=== PATIENT | male | born 1985 | race Hispanic/Latino ===

== ENCOUNTER 2023-01-13 14:49 | Emergency (ER) | payer SELFPAY ==
[2023-01-13] MEDS ORDERED: CEFAZOLIN SODIUM 1 GM/VIAL ONE (15:17)
[2023-01-13] MEDS ORDERED: LIDOCAINE 1% 20 ML MDV ONE (15:17)
[2023-01-13] MEDS ORDERED: NA CHLORIDE 0.9% 100 ML ONE (15:18)
[2023-01-13] MEDS ORDERED: TETANUS & DIPHTHERIA TOX,ADULT 0.5 ML VIAL ONE (15:18)
--- NOTE | 2023-01-13 15:37 | RAD REPORT ---
EXAM DESCRIPTION: RAD - Hand Left 3 View - 01/13/2023 3:28 pm CLINICAL HISTORY: distal thumb amputation COMPARISON: No comparisons FINDINGS/IMPRESSION: The thumb phalangeal tuft has been amputated. No radiopaque foreign body. Soft tissue defect also present.
--- NOTE | 2023-01-13 15:47 | EDPHYS ---
Physician Documentation [facility] Name: Ron Tony Age: 37 yrs Sex: Male : 1985 Arrival Date: 01/13/2023 Time: 14:49 Bed 8 Private MD: ED Physician Ralph Jacobson HPI: 01/13 15:06 This 37 yrs old Male presents to ER via EMS with complaints of distal thumb snw amputation. 15:06 The patient or guardian reports a laceration, distal amputation of left thumb. Context: snw cutting meat with a slicer at home. Associated signs and symptoms: The patient has no apparent associated signs or symptoms. Severity of symptoms: At their worst the symptoms were moderate. The patient has not experienced similar symptoms in the past. The patient has not recently seen a physician. hx of diabetes. Historical: - Allergies: 15:01 No Known Allergies; bp - Home Meds: 15:01 Metformin Oral [Active]; bp - PMHx: 15:01 Diabetes mellitus; bp - Immunization history:: Adult Immunizations up to date, Last tetanus immunization: unknown. - Social history:: Smoking status: Patient denies any tobacco usage or history of. ROS: 15:05 Constitutional: Negative for fever, chills, and weight loss, Eyes: Negative for injury, snw pain, redness, and discharge, ENT: Negative for injury, pain, and discharge, Neck: Negative for injury, pain, and swelling, Cardiovascular: Negative for chest pain, palpitations, and edema, Respiratory: Negative for shortness of breath, cough, wheezing, and pleuritic chest pain, Abdomen/GI: Negative for abdominal pain, nausea, vomiting, diarrhea, and constipation, Back: Negative for injury and pain, : Negative for injury, bleeding, discharge, and swelling, Skin: Negative for injury, rash, and discoloration, Neuro: Negative for headache, weakness, numbness, tingling, and seizure. 15:05 MS/extremity: Positive for left distal thumb amputation. Exam: 15:03 Constitutional: This is a well developed, well nourished patient who is awake, alert, snw and in no acute distress. Head/Face: Normocephalic, atraumatic. Eyes: Pupils equal round and reactive to light, extra-ocular motions intact. Lids and lashes normal. Conjunctiva and sclera are non-icteric and not injected. Cornea within normal limits. Periorbital areas with no swelling, redness, or edema. ENT: Nares patent. No nasal discharge, no septal abnormalities noted. Tympanic membranes are normal and external auditory canals are clear. Oropharynx with no redness, swelling, or masses, exudates, or evidence of obstruction, uvula midline. Mucous membranes moist. Neck: Trachea midline, no thyromegaly or masses palpated, and no cervical lymphadenopathy. Supple, full range of motion without nuchal rigidity, or vertebral point tenderness. No Meningismus. Chest/axilla: Normal chest wall appearance and motion. Nontender with no deformity. No lesions are appreciated. Cardiovascular: Regular rate and rhythm with a normal S1 and S2. No gallops, murmurs, or rubs. Normal PMI, no JVD. No pulse deficits. Respiratory: Lungs have equal breath sounds bilaterally, clear to auscultation and percussion. No rales, rhonchi or wheezes noted. No increased work of breathing, no retractions or nasal flaring. Abdomen/GI: Soft, non-tender, with normal bowel sounds. No distension or tympany. No guarding or rebound. No evidence of tenderness throughout. Back: No spinal tenderness. No costovertebral tenderness. Full range of motion. MS/ Extremity: Pulses equal, no cyanosis. Neurovascular intact. Full, normal range of motion. Neuro: Awake and alert, GCS 15, oriented to person, place, time, and situation. Cranial nerves II-XII grossly intact. Motor strength 5/5 in all extremities. Sensory grossly intact. Cerebellar exam normal. Normal gait. Psych: Awake, alert, with orientation to person, place and time. Behavior, mood, and affect are within normal limits. 15:03 Skin: Appearance: normal except for affected area, injury, laceration(s), the wound is approximately 3 cm(s), of the amputation of distal thumb proximal to nailbed and distal to dip joint. Vital Signs: 14:59 BP 96 / 60; Pulse 100; Resp 16; Temp 98; Pulse Ox 97% on R/A; bp 16:34 BP 118 / 78; Pulse 89; Resp 16; Pulse Ox 98% ; bp Procedures: 15:11 Nerve block: (dental) of dorsal aspect of distal phalanx of left thumb and left snw thumbnail Medication: Lidocaine 1% without epinephrine Marcaine 0.5%, Amount: 3 mls were injected, Effect: the patient's symptoms are improved, markedly, Performed by Cassie PATEL Patient tolerated well. MDM: 14:53 Patient medically screened. marky 15:47 Differential diagnosis: open fracture, closed fracture, avulsion, amputation. Data snw reviewed: vital signs, nurses notes, EMS record, radiologic studies, plain films. Management of patient was discussed with the following: Dr. Sandoval (Hand) at [facility] kindly accept pt for ED eval at [facility]. Management of patient was discussed with the following:. Historians other than the Patient: EMS: [place]. Care significantly affected by the following chronic conditions: Diabetes. Counseling: I had a detailed discussion with the patient and/or guardian regarding: radiology results, the need to transfer to another facility, [facility] does not immediately have the required specialist. Response to treatment: the patient's symptoms have mildly improved after treatment. 01/13 14:58 Order name: Hand Left 3 View XRAY; Complete Time: 15:39 snw 01/13 14:58 Order name: IV; Complete Time: 16:02 snw 01/13 15:49 Order name: Misc. Order: wound dressing - xeroform and loose bulky dressing; Complete snw Time: 16:34 Administered Medications: 15:15 Drug: ceFAZolin IVPB 1 grams Route: IVPB; Site: right forearm; bp 17:06 Follow up: IV Status: Completed infusion; IV Intake: 100ml bp 15:24 Drug: Boostrix Tdap IM 0.5 ml Route: IM; Site: right deltoid; bp 17:06 Follow up: Response: No adverse reaction bp 15:24 Drug: Bupivacaine Infiltration (0.25 %) 1 vials Route: Infiltration; bp 15:24 Drug: Lidocaine Infiltration (1 %) 1 vials Volume: 20 ml; Route: Infiltration; bp Disposition Summary: 01/13/23 15:47 Transfer Ordered Transfer Location: [facility] snw Reason: Specialty snw Condition: Stable snw Problem: new snw Symptoms: are unchanged snw Accepting Physician: Dr. Sandoval for ED eval(01/13/23 17:06) bp Diagnosis - Unspecified open wound of left thumb with damage to nail, initial encounter - snw distal amputation Forms: - Medication Reconciliation Form snw - SBAR form snw Signatures: Dispatcher [employer] EDRalph Orellana MD MD cha Waters, Shelly, [employer] SPECIAL AGENT-C FBI SPECIAL AGENT-John Das, RN RN bp Corrections: (The following items were deleted from the chart) 17:06 15:47 Dr. Sandoval for ED eval snw bp
--- NOTE | 2023-01-13 15:47 | ER ---
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 bp Coronavirus screen: At this time, the client does not indicate any symptoms associated with coronavirus-19. Ebola Screen: No symptoms or risks identified at this time. Initial Sepsis Screen: Does the patient meet any 2 criteria? HR > 90 bpm. No. Patient's initial sepsis screen is negative. Does the patient have a suspected source of infection? No. Patient's initial sepsis screen is negative. Risk Assessment: Do you want to hurt yourself or someone else? Patient reports no desire to harm self or others. Onset of symptoms was January 13, 2023 at 14:30. 14:59 Method Of Arrival: EMS: [facility] bp 14:59 Acuity: DIANN 2 bp Triage Assessment: 15:01 General: Appears distressed, uncomfortable, Behavior is cooperative, appropriate for bp age, agitated, anxious. Pain: Complains of pain in left hand. EENT: No deficits noted. Neuro: No deficits noted. Cardiovascular: No deficits noted. Respiratory: No deficits noted. GI: No signs and/or symptoms were reported involving the gastrointestinal system. : No signs and/or symptoms were reported regarding the genitourinary system. Derm: No deficits noted. Musculoskeletal: Amputation of left thumb. Injury Description: Amputation sustained to left thumb. Historical: - Allergies: 15:01 No Known Allergies; bp - Home Meds: 15:01 Metformin Oral [Active]; bp - PMHx: 15:01 Diabetes mellitus; bp - Immunization history:: Adult Immunizations up to date, Last tetanus immunization: unknown. - Social history:: Smoking status: Patient denies any tobacco usage or history of. Screenin:00 [facility] ED Fall Risk Assessment (Adult) History of falling in the last 3 months, bp including since admission No falls in past 3 months (0 pts). Abuse screen: Denies threats or abuse. Denies injuries from another. Nutritional screening: No deficits noted. Tuberculosis screening: No symptoms or risk factors identified. Assessment: 15:00 General: SEE TRIAGE NOTE. bp 16:34 Reassessment: REPORT TO YO VERA FOR [facility] ER. TRANSPORT PENDING. bp 17:05 Reassessment: PT KVNG WITH EMS. bp Vital Signs: 14:59 BP 96 / 60; Pulse 100; Resp 16; Temp 98; Pulse Ox 97% on R/A; bp 16:34 BP 118 / 78; Pulse 89; Resp 16; Pulse Ox 98% ; bp ED Course: 14:51 Patient arrived in ED. iw 14:53 Ralph Jacobson MD is Attending Physician. marky 14:55 Cassie Kramer FNP-C is PHCP. snw 14:59 John Nugent, JODY is Primary Nurse. bp 15:00 Patient has correct armband on for positive identification. Bed in low position. Call bp light in reach. Side rails up X2. 15:01 Triage completed. bp 15:04 Arm band placed on. bp 15:15 Inserted saline lock: 22 gauge in right forearm, using aseptic technique. Blood bp collected. 15:30 Hand Left 3 View XRAY In Process Unspecified. EDMS 15:37 initiated a transfer with Rivka Cabrera Rn from the [facility]. eb 15:44 connected the hand surgeon radiation oncology manager for [facility] ER with Cassie Griffiths for patient transfer consultation. 15:45 administrative approval given by Rivka Cabrera Rn/ patient has been accepted to [facility] ER/ Dr. Eleazar Sandoval has accepted the patient in transfer/ report to be called to [phone]. 17:05 No provider procedures requiring assistance completed. Patient transferred, IV remains bp in place. Administered Medications: 15:15 Drug: ceFAZolin IVPB 1 grams Route: IVPB; Site: right forearm; bp 17:06 Follow up: IV Status: Completed infusion; IV Intake: 100ml bp 15:24 Drug: Boostrix Tdap IM 0.5 ml Route: IM; Site: right deltoid; bp 17:06 Follow up: Response: No adverse reaction bp 15:24 Drug: Bupivacaine Infiltration (0.25 %) 1 vials Route: Infiltration; bp 15:24 Drug: Lidocaine Infiltration (1 %) 1 vials Volume: 20 ml; Route: Infiltration; bp Medication: 15:00 VIS not applicable for this client. bp Intake: 17:06 IV: 100ml; Total: 100ml. bp Outcome: 15:47 ER care complete, transfer ordered by . w 17:05 Transferred by ground EMS to [facility], Transfer form completed. bp 17:05 Condition: stable 17:05 Instructed on the need for transfer. 17:06 Patient left the ED. bp Signatures: Dispatcher [employer] EDMS Ralph Jacobson MD MD cha Waters, Shelly, [employer]ER-C [employer]ER-Csnw Evita Kelley, RN RN John Block RN RN Nadya Charles
[2023-01-13 17:29] VITALS: TEMP 98
[2023-01-13 17:31] VITALS: BP 118/78; O2SAT 98
== END 2023-01-13 17:06 | disposition short-term general hospital (02) ==
LOC: ER 14:49
DX: S68.022A Partial traumatic metacarpophalangeal amputation of left thumb, initial encounter (principal)
CPT/HCPCS: 90714; 96365; 96366; 96372; 99285; J0690; J2001